=== PATIENT | male | born 2000 ===

== ENCOUNTER 2023-04-27 10:41 | Emergency (ER) | payer SELFPAY ==
[~2023-04-27] VITALS: Wt 43.0 kg
[2023-04-27 12:07] LABS: BASO % 0.3 % (0.0-2.0); EOS # 0.2 K/mm3 (0.0-0.7); EOS % 1.4 % (0.0-4.0); GRAN # 8.9 K/mm3 (1.4-6.5); GRAN % 76.4 % (42.2-75.2); HEMATOCRIT 46.8 % (42.0-52.0); HEMOGLOBIN 15.7 g/dl (13.5-18.0); LYMPH # 1.8 K/mm3 (1.2-3.4); LYMPH % 15.8 % (20.0-51.0); MEAN CELL VOLUME 89 fl (80.0-100.0); MEAN CORPUSCULAR HEMOGLOBIN 30 pg (27-31); MEAN CORPUSCULAR HGB CONC 34 g/dl (33.0-37.0); MEAN PLATELET VOLUME 10.3 fl (7.4-10.4); MONO # 0.7 K/mm3 (0.1-0.6); MONO % 5.8 % (1.7-9.3); PLATELET COUNT 233 K/mm3 (130-400); RED BLOOD COUNT 5.24 M/mm3 (4.20-5.60)
[2023-04-27 12:24] LABS: ERYTHROCYTE SEDIMENTATION RATE 6 mm/hr (0-15)
[2023-04-27 12:36] LABS: ALBUMIN 4.2 gm/dL (3.5-5.0); BILIRUBIN,TOTAL 0.9 mg/dL (0.2-1.2); C-REACTIVE PROTEIN 3.05 mg/dL (0.00-0.50); CREATININE, serum 0.78 mg/dL (0.72-1.25)
[2023-04-27] MEDS ORDERED: Lido/EPI/Tetrac Gel 3 ML SYRINGE TOP ONE (13:49)
[2023-04-27] MEDS ORDERED: CLEOCIN HCL300 MG PO (14:50)
[2023-04-27 15:21] VITALS: BP 131/76; PULSE 67; TEMP 97.6
== END 2023-04-27 15:19 | disposition home or self-care (01) ==
LOC: COL.ER 10:41
PROVIDERS: Nurse Practitioner
DX: L02.511 Cutaneous abscess of right hand (principal); F17.200 Nicotine dependence, unspecified, uncomplicated
CPT/HCPCS: J0737

== ENCOUNTER 2023-04-29 15:01 | Day surgery (SDC) | payer SELFPAY ==
[~2023-04-29] VITALS: Ht 152.4 cm; Wt 48.6 kg
[~2023-04-29 15:01] MED LIST: CLEOCIN HCL300 MG PO; LR 1,000 ML IV SCH
--- NOTE | 2023-04-29 15:15 | NUR ---
PATIENT ADMITTED TO ROOM 1 AMBULATORY ACCOMPANIED BY BROTHER AND SISTER. PATIENT IS NON ICELANDIC SPEAKING AND BROTHER SPEAKS [place]IC AND STATES THAT HE WILL TRANSLATE FOR HIM. ALL QUESTIONS ASKED AND ANSWERED. CONSENT SIGNED. RIGHT INDEX FINGER RED AND SWOLLEN WITH BLISTER AROUND THE KNUCKLE. HAND WARM TO TOUCH.
[2023-04-29 15:38] VITALS: BP 106/59; PULSE 63; TEMP 97.9
[2023-04-29] MEDS ORDERED: Midazolam 2 MG/2 ML VIAL ONE (15:49)
[2023-04-29] MEDS ORDERED: oxyCODONE/Acetaminophen 5-325 MG TAB PO PRN (16:00)
[2023-04-29] MEDS ORDERED: traMADol 50 MG TAB PO PRN (16:00)
[2023-04-29] MEDS ORDERED: Morphine 4 MG/ML VIAL IV PRN (16:00)
[2023-04-29] MEDS ORDERED: Ondansetron 4 MG/2 ML VIAL IV PRN (16:00)
[2023-04-29] MEDS ORDERED: HYDROcodone/Acetaminophen 7.5-325 MG TAB PO PRN (16:00)
[2023-04-29 16:42] VITALS: BP 85/39; PULSE 60; TEMP 97
[2023-04-29 16:55] VITALS: BP 92/45; PULSE 54
[2023-04-29 17:10] VITALS: BP 105/57; PULSE 42
[2023-04-29 17:25] VITALS: BP 102/66; PULSE 56
[2023-04-29 17:55] VITALS: BP 110/69; PULSE 63
--- NOTE | 2023-04-29 20:49 | NUR ---
[id number]: PT TO RECOVERY BAY 1 FROM OR S/P R INDEX FINGER I&D SLEEPING, PLACED ON MONITOR, VSS ON 6L O2 VIA MASK RECEIVED REPORT AND ASSUMED CARE OF PT FROM BOILER OPERATOR HELPER AND ORRN BROTHER AT BEDSIDE, INSTRUCTIONAL FACILITATOR FOR MALIAN SPEAKING PT (OFFICIAL INSTRUCTIONAL FACILITATOR SERVICE AT BEDSIDE FOR DC INSTRUCTIONS, OTHERWISE PT WOULD LIKE BROTHER TO TRNASLATE BASIC INSTRUCTIONS - WAIVER IN CHART). PT HYPOTENSIVE - VORB FROM BOILER OPERATOR HELPER TO BOLUS REMAINING FLUIDS, PT PLACED IN TRANDELENBERG HE IS STILL SLEEPING. PATENT AIRWAY, WILL CONTINUE TO MONITOR CLOSELY. DRSG (XEROFORM, 4X4, CURLEX, COBAN TO R INDEX/HAND) CDI ICE PLACED TO SURGICAL SITE, ELEVATION APPLIED. CAP REFILL INSTANT. 1720 PT REMAINS SLEEPING AND HYPOTENSIVE, WITHDRAWLS TO PAIN ONLY, HR TRANSIENTLY DROPS TO HIGH 30'S, BUT MAINTAINS IN HIGH 40'S. TC TO BOILER OPERATOR HELPER MIXING AND MOLDING MACHINE OPERATOR, (STOCH) - TORB FOR 0.2 MG IV ROMAZICON. 1730 ROMAZICON IVP ORDERED, PT IMMEDIATELY RESPONSIVE, A&O, NAD, VS STABLIZING, PLACED ON RA - BOILER OPERATOR HELPER AT BEDSIDE TO ASSESS PT HE WAS AWAKING. ORIENTED TO SDC AND UPDATED TO DISPO/DC PLAN - DENIES COMPLAINT PROVIDED FOOD/FLUIDS, WARM BLANKETS REFRESHED - TOLERATING WELL PT C/O INCREASING RIGHT INDEX FINGER PAIN - PO NORCO GIVEN AT 1814 PT A&O, NAD, VSS ON RA, TOLERATING PO, IS WITHOUT SIGNIFICANT COMPLAINT, WITH STEADY GAIT BY END OF STAY INSTRUCTIONAL FACILITATOR SERVICES USED (SEE DC INSTRUCTION SIGNATURE PAGE FOR INSTRUCTIONAL FACILITATOR ID #'S) IV D/C'D. D/C INSTRUCTIONS, FOLLOW UP REVIEWED AND HANDED TO PT/FAMILY. ALL QUESTIONS AND CONCERNS ADDRESSED TO PT SATISFACTION. TAKEN TO EXIT VIA W/C WITH ALL BELONGINGS AND PAPERWORK IN HAND, ASSISTED INTO PASSENGER SEAT OF PO. BROTHER TO DRIVE HOME.
== END 2023-04-29 18:40 | disposition home or self-care (01) ==
LOC: SDCO 15:01
DX: L02.511 Cutaneous abscess of right hand (principal)
CPT/HCPCS: J0665; J0690; J2250; J2704; J7120